=== PATIENT | male | born 1985 | race Caucasian/White ===

== ENCOUNTER 2023-08-12 12:31 | Emergency (ER) | payer BC ==
[2023-08-12] MEDS: methylPREDNISolone Sodium Succinate 40 MG/1 ML SDV IVPUSH ONE (13:44)
[2023-08-12] MEDS: diphenhydrAMINE 50 MG/ML SDV IVPUSH ONE (13:44)
== END 2023-08-12 16:15 | disposition home or self-care (01) ==
LOC: JD.ED 12:31
DX: T78.3XXA Angioneurotic edema, initial encounter (principal); F17.210 Nicotine dependence, cigarettes, uncomplicated
CPT/HCPCS: 96374; 96375; 99283; J1200; J2920